=== PATIENT | female | born 1965 | race Caucasian/White ===

== ENCOUNTER 2017-05-05 22:11 | Emergency (ER) | END 2017-05-06 04:30 | disposition home or self-care (01) ==

== ENCOUNTER 2017-06-27 17:38 | Emergency (ER) | END 2017-06-28 03:36 | disposition home or self-care (01) ==

== ENCOUNTER 2017-10-30 16:39 | Emergency (ER) | END 2017-10-31 00:33 | disposition short-term general hospital (02) ==